=== PATIENT | female | born 2005 | race Hispanic/Latino ===

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

== ENCOUNTER 2023-04-26 10:37 | Emergency (ER) | payer OTHER ==
[2023-04-26] MEDS ORDERED: IPRATROPIUM BROM 0.5MG/2.5ML ONE (10:58)
[2023-04-26] MEDS ORDERED: ALBUTEROL 2.5 MG/3 ML NEB SOL ONE (10:58)
[2023-04-26] MEDS ORDERED: LORazepam 2 MG/ML VIAL ONE (11:14)
[2023-04-26] MEDS ORDERED: KETOROLAC 30 MG/ML INJ ONE (11:14)
[2023-04-26] MEDS ORDERED: NA CHLORIDE 0.9% 500 ML ONE (11:14)
--- NOTE | 2023-04-26 11:47 | RAD REPORT ---
EXAM DESCRIPTION: RAD - Chest Single View - 04/26/2023 11:33 am CLINICAL HISTORY: CHEST PAIN Chest pain. COMPARISON: Abdomen 1 View (KUB) dated 11/22/2019; Chest Single View dated 02/23/2019 FINDINGS: Portable technique limits examination quality. The lungs are grossly clear. The heart is normal in size. No displaced fractures. IMPRESSION: No acute intrathoracic process suspected.
[2023-04-26 12:35] LABS: Absolute Lymphocytes (CBC) 1.4 K/uL (0.7-4.9); Hematocrit 43.1 % (36.0-45.0); Lymphocytes % 17.8 % (15.3-44.8); MCV 89.7 fL (80-100); MPV 8.1 fL (7.6-11.3); Platelets 323 thou/uL (152-406)
[2023-04-26 13:01] LABS: BUN Blood Urea Nitrogen 15 mg/dL (7-18); Bicarbonate 22 mEq/L (21-32); Glomerular Filtration Rate 123 ml/min (=/>90); Glucose Level 94 mg/dL (74-106); Potassium 3.8 mEq/L (3.5-5.1); Sodium Level 139 mEq/L (136-145); Troponin High Sensitivity < 3.0 pg/mL (<58.9)
--- NOTE | 2023-04-26 13:28 | ER ---
Nurse's Notes [facility] Name: Meredith Jimenes Age: 18 yrs Sex: Female : 2005 Arrival Date: 04/26/2023 Time: 10:37 Bed 18 Private MD: Diagnosis: Chest pain, unspecified;Upper abdominal pain, unspecified;Anxiety disorder, unspecified Presentation: 04/26 10:40 Chief complaint: Patient states: Difficulty breathing since this morning. Pt states she bp has hx of asthma but does not have any inhalers or breathing tx at home. 10:40 Method Of Arrival: Ambulatory bp 10:40 Coronavirus screen: Vaccine status: Patient reports being unvaccinated. Ebola Screen: bp Patient denies travel to an Ebola-affected area in the 21 days before illness onset. Initial Sepsis Screen: Does the patient meet any 2 criteria? RR > 20 per min. No. Patient's initial sepsis screen is negative. Does the patient have a suspected source of infection? No. Patient's initial sepsis screen is negative. Risk Assessment: Do you want to hurt yourself or someone else? Patient reports no desire to harm self or others. Onset of symptoms was April 26, 2023. 10:40 Acuity: SANTA 3 bp Triage Assessment: 14:05 General: Appears in no apparent distress. Respiratory:. db 14:08 General: Appears in no apparent distress. uncomfortable. General: Behavior is anxious. db Respiratory: Reports shortness of breath Onset: The symptoms/episode began/occurred gradually, the patient has mild shortness of breath. 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 - Social history:: Smoking status: Patient reports the use of cigarette tobacco products, denies chronic smoking, but will smoke occasionally, Reported history of juuling and/or vaping. Screenin:[facility] ED Fall Risk Assessment (Adult) History of falling in the last 3 months, db including since admission No falls in past 3 months (0 pts) Confusion or Disorientation No (0 pts) Intoxicated or Sedated No (0 pts) Impaired Gait No (0 pts) Mobility Assist Device Used No (0 pt) Altered Elimination No (0 pt) Score/Fall Risk Level 0 - 2 = Low Risk Oriented to surroundings, Maintained a safe environment. Abuse screen: Denies threats or abuse. Denies injuries from another. Nutritional screening: No deficits noted. Tuberculosis screening: No symptoms or risk factors identified. Assessment: 11:00 Reassessment: Patient appears in no apparent distress at this time. Patient and/or db family updated on plan of care and expected duration. Pain level reassessed. Patient is alert, oriented x 3, equal unlabored respirations, skin warm/dry/pink. General: Appears in no apparent distress. comfortable, Behavior is calm, cooperative. Pain: Complains of pain in epigastric. Neuro: Level of Consciousness is awake, alert, obeys commands, Oriented to person, place, time, situation. Cardiovascular: Rhythm is regular. Respiratory: Airway is patent Respiratory effort is even, unlabored, Respiratory pattern is regular, symmetrical, Breath sounds are clear. 12:00 Reassessment: Patient appears in no apparent distress at this time. Patient and/or db family updated on plan of care and expected duration. Pain level reassessed. Patient is alert, oriented x 3, equal unlabored respirations, skin warm/dry/pink. 13:00 Reassessment: Patient appears in no apparent distress at this time. Patient and/or db family updated on plan of care and expected duration. Pain level reassessed. Patient is alert, oriented x 3, equal unlabored respirations, skin warm/dry/pink. 14:00 Reassessment: Patient appears in no apparent distress at this time. Patient and/or db family updated on plan of care and expected duration. Pain level reassessed. Patient is alert, oriented x 3, equal unlabored respirations, skin warm/dry/pink. Patient states feeling better. Patient states symptoms have improved. Vital Signs: 10:40 BP 119 / 85; Pulse 84; Resp 26; Temp 98.2(O); Pulse Ox 100% on R/A; Weight 54.43 kg; bp Height 5 ft. 3 in. ; Pain 8/10; 11:00 BP 112 / 76; Pulse 64; Resp 18; Pulse Ox 100% on R/A; db 11:30 BP 110 / 79; Pulse 77; Resp 16; Pulse Ox 100% on R/A; db 13:30 BP 108 / 78; Pulse 16; Resp 16 S; Pulse Ox 98% ; db 10:40 Body Mass Index 21.26 (54.43 kg, 160.02 cm) bp 10:40 Pain Scale: Adult bp ED Course: 10:38 Patient arrived in ED. rg4 10:40 Ravindra Daley MD is Attending Physician. kdr 10:40 Arm band placed on right wrist. bp 10:42 Marina Ruggiero, RN is Primary Nurse. db 10:54 Triage completed. bp 11:13 Inserted saline lock: 20 gauge in right antecubital area, using aseptic technique. sm8 Blood collected. 11:34 CXR XRAY In Process Unspecified. EDMS 11:50 Patient has correct armband on for positive identification. Bed in low position. Call db light in reach. Side rails up X2. Pulse ox on. NIBP on. 14:05 Provided Education on: DISCHARGE. db 14:05 No provider procedures requiring assistance completed. IV discontinued, intact, db bleeding controlled, No redness/swelling at site. Administered Medications: 10:50 Drug: DuoNeb Nebulize (3:1) (2.5 mg - 0.5 mg) 3 ml Route: Nebulizer; bp 14:04 Follow up: Response: No adverse reaction db 11:10 Drug: Ketorolac IVP 15 mg Route: IVP; Site: right antecubital; db 14:04 Follow up: Response: No adverse reaction db 11:10 Drug: Ativan IVP 0.5 mg Route: IVP; Site: right antecubital; db 14:05 Follow up: Response: No adverse reaction db 11:16 Drug: NS 0.9% IV 500 ml Route: IV; Rate: bolus; Site: right antecubital; db 14:04 Follow up: Response: No adverse reaction; IV Status: Completed infusion; IV Intake: db 500ml Medication: 14:05 VIS not applicable for this client. db Intake: 14:04 IV: 500ml; Total: 500ml. db Outcome: 13:27 Discharge ordered by . kdr 14:05 Discharged to home ambulatory, with family. db 14:05 Condition: stable 14:05 Discharge instructions given to patient, Instructed on discharge instructions, follow up and referral plans. Prescriptions given X 2. 14:09 Patient left the ED. db Signatures: Dispatcher [employer] EDWA Ravindra Daley MD MD kdr [place], Tess rg4 Jag Frazier RN RN bp Marina Ruggiero RN RN db Celeste Aguirre 8
--- NOTE | 2023-04-26 13:28 | EDPHYS ---
Physician Documentation [facility] Name: Meredith Jimenes Age: 18 yrs Sex: Female : 2005 Arrival Date: 04/26/2023 Time: 10:37 Bed 18 Private MD: ED Physician Ravindra Daley HPI: 04/26 12:15 This 18 yrs old Female presents to ER via Ambulatory with complaints of kdr Breathing Difficulty. 12:15 Patient states that when she woke this morning she had shortness of breath and chest kdr pain in the subxiphoid area. She has had similar symptoms in the past and has been associated with panic attacks. This is a little different and that there is more pain in the subxiphoid area and she also had some numbness in her hands. Patient otherwise appears to be in mild to moderate distress. Vital signs were normal at time of admission.. Onset: The symptoms/episode began/occurred suddenly, just prior to arrival, this morning. Severity of symptoms: At their worst the symptoms were moderate severe incapacitating in the emergency department the symptoms are unchanged. The patient has experienced similar episodes in the past, but today's symptoms are worse, more painful. The patient has not recently seen a physician. Patient states on arrival her pain was about an 8 and now sometime later after the initial round of treatment her pain was about 6-6-1/2.. 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 - Social history:: Smoking status: Patient reports the use of cigarette tobacco products, denies chronic smoking, but will smoke occasionally, Reported history of juuling and/or vaping. ROS: 12:15 Constitutional: Negative for fever, chills, and weight loss, Eyes: Negative for injury, kdr pain, redness, and discharge, ENT: Negative for injury, pain, and discharge, Neck: Negative for injury, pain, and swelling, Abdomen/GI: Negative for abdominal pain, nausea, vomiting, diarrhea, and constipation, Back: Negative for injury and pain, : Negative for injury, bleeding, discharge, and swelling, MS/Extremity: Negative for injury and deformity, Skin: Negative for injury, rash, and discoloration, Neuro: Negative for headache, weakness, numbness, tingling, and seizure activity. Psych: Negative for depression, anxiety, suicide ideation, homicidal ideation, and hallucinations, Allergy/Immunology: Negative for hives, rash, and allergies, Endocrine: Negative for neck swelling, polydipsia, polyuria, polyphagia, and marked weight changes, Hematologic/Lymphatic: Negative for swollen nodes, abnormal bleeding, and unusual bruising. 12:15 Cardiovascular: Positive for chest pain, Negative for edema, orthopnea, palpitations. 12:15 Respiratory: Positive for shortness of breath, at rest. Exam: 12:15 Constitutional: This is a well developed, well nourished patient who is awake, alert, kdr and in mild to moderate distress. Head/Face: Normocephalic, atraumatic. Eyes: Pupils equal round and reactive to light, extra-ocular motions intact. Lids and lashes normal. Conjunctiva and sclera are non-icteric and not injected. Cornea within normal limits. Periorbital areas with no swelling, redness, or edema. Neck: Trachea midline, no thyromegaly or masses palpated, and no cervical lymphadenopathy. Supple, full range of motion without nuchal rigidity, or vertebral point tenderness. No Meningismus. Chest/axilla: Normal chest wall appearance and motion. Nontender with no deformity. No lesions are appreciated. Cardiovascular: Regular rate and rhythm with a normal S1 and S2. No gallops, murmurs, or rubs. Normal PMI, no JVD. No pulse deficits. Respiratory: Lungs have equal breath sounds bilaterally, clear to auscultation and percussion. No rales, rhonchi or wheezes noted. No increased work of breathing, no retractions or nasal flaring. Abdomen/GI: Soft, non-tender, with normal bowel sounds. No distension or tympany. No guarding or rebound. No evidence of tenderness throughout. Back: No spinal tenderness. No costovertebral tenderness. Full range of motion. Skin: Warm, dry with normal turgor. Normal color with no rashes, no lesions, and no evidence of cellulitis. MS/ Extremity: Pulses equal, no cyanosis. Neurovascular intact. Full, normal range of motion. Neuro: Awake and alert, GCS 15, oriented to person, place, time, and situation. Cranial nerves II-XII grossly intact. Motor strength 5/5 in all extremities. Sensory grossly intact. Cerebellar exam normal. Normal gait. Psych: Awake, alert, with orientation to person, place and time. Behavior, mood, and affect are within normal limits. Vital Signs: 10:40 BP 119 / 85; Pulse 84; Resp 26; Temp 98.2(O); Pulse Ox 100% on R/A; Weight 54.43 kg; bp Height 5 ft. 3 in. ; Pain 8/10; 11:00 BP 112 / 76; Pulse 64; Resp 18; Pulse Ox 100% on R/A; db 11:30 BP 110 / 79; Pulse 77; Resp 16; Pulse Ox 100% on R/A; db 13:30 BP 108 / 78; Pulse 16; Resp 16 S; Pulse Ox 98% ; db 10:40 Body Mass Index 21.26 (54.43 kg, 160.02 cm) bp 10:40 Pain Scale: Adult bp MDM: 12:15 Data reviewed: vital signs, nurses notes, lab test result(s), radiologic studies. kdr 13:27 Patient medically screened. kdr 04/26 12:11 Order name: CBC with Diff; Complete Time: 13:11 kdr 04/26 12:11 Order name: Chem 7; Complete Time: 13:11 kdr 04/26 12:11 Order name: Troponin High Sensitivity: CP; Complete Time: 13:11 kdr 04/26 10:51 Order name: CXR XRAY; Complete Time: 11:57 kdr 04/26 10:51 Order name: EKG - Nurse/Tech; Complete Time: 10:51 kdr Administered Medications: 10:50 Drug: DuoNeb Nebulize (3:1) (2.5 mg - 0.5 mg) 3 ml Route: Nebulizer; bp 14:04 Follow up: Response: No adverse reaction db 11:10 Drug: Ketorolac IVP 15 mg Route: IVP; Site: right antecubital; db 14:04 Follow up: Response: No adverse reaction db 11:10 Drug: Ativan IVP 0.5 mg Route: IVP; Site: right antecubital; db 14:05 Follow up: Response: No adverse reaction db 11:16 Drug: NS 0.9% IV 500 ml Route: IV; Rate: bolus; Site: right antecubital; db 14:04 Follow up: Response: No adverse reaction; IV Status: Completed infusion; IV Intake: db 500ml Disposition Summary: 04/26/23 13:27 Discharge Ordered Location: Home kdr Problem: new kdr Symptoms: have improved kdr Condition: Stable kdr Diagnosis - Chest pain, unspecified kdr - Upper abdominal pain, unspecified kdr - Anxiety disorder, unspecified kdr Followup: kdr - With: Private Physician - When: 2 - 3 days - Reason: If symptoms return, Further diagnostic work-up, Recheck today's complaints, Continuance of care, Re-evaluation by your physician Discharge Instructions: - Discharge Summary Sheet kdr - Nonspecific Chest Pain, Adult, [id number] kdr - Generalized Anxiety Disorder, Adult kdr Forms: - Work release form bd - Medication Reconciliation Form kdr - Thank You Letter kdr - Patient Portal Instructions kdr Signatures: Dispatcher [employer] Ravindra Herrera MD MD kdr Jag Frazier RN RN Marina Colin RN RN db
[2023-04-26 14:43] VITALS: TEMP 98.2
[2023-04-26 14:51] VITALS: BP 108/78; O2SAT 98
--- NOTE | 2023-04-27 18:12 | EKG ---
Test Date: 2023-04-26 Test Time: 10:45:08 Chief Writer: SERA MEASUREMENT RESULTS: Intervals: Rate: 87 WV: 148 QRSD: 76 QT: 358 QTc: 430 [place]: P: 73 WV: 148 QRS: 87 T: 65 INTERPRETIVE STATEMENTS: Normal sinus rhythm Normal ECG Compared to ECG 02/23/2019 20:33:48 No significant changes Electronically Signed On 04-27-23 18:10:32 CDT by Sid Banerjee
== END 2023-04-26 14:09 | disposition home or self-care (01) ==
LOC: ER 10:37
DX: R07.9 Chest pain, unspecified (principal); R10.10 Upper abdominal pain, unspecified; F41.9 Anxiety disorder, unspecified; R06.02 Shortness of breath; J45.909 Unspecified asthma, uncomplicated; Z72.0 Tobacco use
CPT/HCPCS: 85025; 80048; 36415; 84484; 71045; J7613; J7644; J7040; 93005